=== PATIENT | female | born 1965 | race Caucasian/White ===

== ENCOUNTER 2018-11-24 21:24 | Emergency (ER) | payer MEDICAID ==
[~2018-11-24] VITALS: Ht 165.1 cm; Wt 68.6 kg
[~2018-11-24 21:24] MED LIST: LEVO750T46 PO
[2018-11-24 22:41] VITALS: BP 133/87
== END 2018-11-24 22:43 | disposition home or self-care (01) ==
LOC: ER 21:25
DX: J32.8 Other chronic sinusitis (principal); L53.8 Other specified erythematous conditions; Z79.899 Other long term (current) drug therapy
CPT/HCPCS: 99281